=== PATIENT | female | born 1980 | race Caucasian/White ===

== ENCOUNTER 2018-06-26 07:57 | Emergency (ER) | payer OTHER ==
[~2018-06-26] VITALS: Ht 165.1 cm; Wt 51.7 kg
--- OUTSIDE RECORDS SUMMARY | ~2018-06-26 | XMS | Clinical Summary ---
Demographics + + + | Address | [address] | | | [place] [address] | + + + | Home Phone | | + + + | Preferred Language | Unknown | + + + | Marital Status | | + + + | Hindu Affiliation | 1013 | + + + | Race | Unknown | + + + | Ethnic Group | Unknown | + + + Author + + + | Author | [facility] | | | and [place] | + + + | Organization | [facility] | | | and [place] | + + + | Address | Unknown | + + + | Phone | Unavailable | + + + Support + + +---------+ + | Name | Relationship | Address | Phone | + + +---------+ + | ANNE OLIVA | ECON | Unknown | | + + +---------+ + Care Team Providers + +------+ + | Care Registered Nurse First Assistant Name | Role | Phone | + +------+ + PP | Unavailable | + +------+ + Allergies Not on File Current Medications Not on file Active Problems Not on file Social History + +-------+ +--------+------+ | Tobacco Use | Types | Packs/Day | Years | Date | | | | | Used | | + +-------+ +--------+------+ | Never Assessed | | | | | + +-------+ +--------+------+ + + + | Sex Assigned at | Date Recorded | | | | + + + | Not on file | | + + + Plan of Treatment + + + + + | Health Maintenance | Due Date | Last Done | Comments | + + + + + | Vaccine: | | | | | Dtap/Tdap/Td (1 - | 1 | | | | Tdap) | | | | + + + + + | Cervical Cancer | | | | | Screening (Pap) | 2 | | | + + + + + | Vaccine: Influenza | | | | | (#1) | 8 | | | + + + + + Results Not on filefrom Last 3 Months"
--- OUTSIDE RECORDS SUMMARY | ~2018-06-26 | XMS | Clinical Summary ---
Demographics + + + | Address | [address] | | | [place] [address] | + + + | Home Phone | | + + + | Preferred Language | Unknown | + + + | Marital Status | | + + + | Jew Affiliation | Unknown | + + + | Race | Unknown | + + + | Ethnic Group | Unknown | + + + Author + + + | Author | [facility] | + + + | Organization | [facility] | + + + | Address | Unknown | + + + | Phone | Unavailable | + + + Support + + +---------+ + | Name | Relationship | Address | Phone | + + +---------+ + | Suhas Oliva | ECON | Unknown | | + + +---------+ + Care Team Providers + +------+ + | Care Wheel Truer Name | Role | Phone | + [...] | + + + Plan of Treatment Not on file Results Not on filefrom Last 3 Months Insurance + +--------+ +------+-------+---------+ | Payer | Benefi | Subscriber | Type | Phone | Address | | | t Plan | ID | | | | | | / | | | | | | | Group | | | | | + +--------+ +------+-------+---------+ | [employer] | [employer] | [id number] | | | | | | HEALTH | | | | | | | PLAN | | | | | + +--------+ +------+-------+---------+ + +--------+ +--------+ + + | Guarantor Name | Accoun | Relation to | Date | Phone | Billing Address | | | t Type | Patient | of | | | | | | | | | | + +--------+ +--------+ + + | ANTHONY OLIVA | Person | Self [birth year] 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
--- OUTSIDE RECORDS SUMMARY | ~2018-06-26 | XMS | Clinical Summary ---
Demographics + + + | Address | [address] | | | [place] [address] | + + + | Home Phone | | + + + | Preferred Language | Unknown | + + + | Marital Status | | + + + | Alevism Affiliation | 1013 | + + + | Race | Unknown | + + + | Ethnic Group | Unknown | + + + Author + + + | Author | [facility] | | | and [place] | + + + | Organization | [facility] | | | and [place] | [...] Team Providers + +------+ + | Care Newspaper Columnist Name | Role | Phone | + [...]
--- OUTSIDE RECORDS SUMMARY | ~2018-06-26 | XMS | Clinical Summary ---
Demographics + + + | Address | [address] | | | [place] [address] | + + + | Home Phone | | + + + | Preferred Language | Unknown | + + + | Marital Status | | + + + | Nondenominational Affiliation | Unknown | + + + | Race | Unknown | + + + | Ethnic Group | Unknown | + + + Author + + + | Author | [facility] | + + + | Organization | [facility] | + + + | Address | Unknown | + + + | Phone | Unavailable | + + + Support + + +---------+ + | Name | Relationship | Address | Phone | + + +---------+ + | Suhas Oliva | ECON | Unknown | | + + +---------+ + Care Team Providers + +------+ + | Care Doorkeeper Name | Role | Phone | + [...] | [employer] | [employer] | [id number] | | | | | | HEALTH [...] | | al/Fam | | 1979 | [phone] | [place] [address] | | | [email or web address] | | | [address]: | | | | | | | | | | | | | | [phone] | | | | | | | [address] | | + +--------+ +--------+ + +"
[~2018-06-26 07:57] MED LIST: ARMOUR THYROID120 MG PO
[2018-06-26] MEDS ORDERED: PAXIL20 MG PO (08:11)
[2018-06-26] MEDS ORDERED: ALPRAZOLAM0.5 M1 PO (08:12)
== END 2018-06-26 08:48 | disposition home or self-care (01) ==
LOC: ED 07:57
DX: F41.9 Anxiety disorder, unspecified (principal); Z79.899 Other long term (current) drug therapy; Z85.850 Personal history of malignant neoplasm of thyroid
CPT/HCPCS: 99283